=== PATIENT | female | born 1945 | race Hispanic/Latino ===

== ENCOUNTER 2017-07-31 12:07 | Emergency (ER) | payer MEDICARE ==
[2017-07-31 12:39] LABS: BASOPHILS % (AUTO) 0.8 % (0.0-5.0); HEMATOCRIT 43.1 % (36-48); MEAN CORPUSCULAR HEMOGLOBIN 30.4 pg (27.0-33.0); MEAN CORPUSCULAR HGB CONC 33.8 g/dL (32.0-36.0); MEAN CORPUSCULAR VOLUME 89.8 fL (79-99); MONOCYTES % (AUTO) 5.6 % (3.0-13.0); NEUTROPHILS % (AUTO) 43.6 % (40.0-77.0); PLATELET COUNT (AUTO) 294 K/uL (130-400); RED CELL DISTRIBUTION WIDTH 13.6 % (11.0-15.5); WHITE BLOOD COUNT (AUTO) 8.2 K/uL (4.8-10.8)
[2017-07-31 12:49] LABS: CREATININE 0.8 mg/dL (0.5-1.5); POTASSIUM 3.4 mmol/L (3.5-5.1)
[2017-07-31 12:50] LABS: INR 0.92 (0.85-1.15); PROTHROMBIN TIME 9.7 SEC (9.6-11.6)
[2017-07-31 13:06] LABS: BILIRUBIN,TOTAL 0.7 mg/dL (0.2-1.0); CREATINE KINASE MB 0.7 ng/mL (0.5-3.6); TOTAL PROTEIN, SERUM 7.9 g/dL (6.0-8.3)
[2017-07-31] MEDS ORDERED: ONDANSETRON HCL 4 MG/2 ML VIAL ONE (13:06)
[2017-07-31] MEDS ORDERED: POTASSIUM CHLORIDE 10% ELIXIR 20 MEQ/15 ML UDCUP ONE (13:32)
[2017-07-31 14:02] LABS: APPEARANCE,URINE Clear (CLEAR); BILIRUBIN,URINE Negative (NEGATIVE); COLOR,URINE Yellow (YELLOW); GLUCOSE, URINE (UA) Negative (NEGATIVE); KETONES,URINE Negative (NEGATIVE); LEUKOCYTE ESTERASE ,URINE Negative (NEGATIVE); NITRATE,URINE Negative (NEGATIVE); OCCULT BLOOD,URINE Negative (NEGATIVE); PH,URINE 6.5 (5.0-8.0); PROTEIN,URINE Negative (NEGATIVE); UROBILINOGEN,URINE 0.2 mg/dL (0.2-1.0)
== END 2017-07-31 15:32 | disposition home or self-care (01) ==
LOC: EDH 12:07
DX: B34.9 Viral infection, unspecified (principal); M19.90 Unspecified osteoarthritis, unspecified site; M81.0 Age-related osteoporosis without current pathological fracture; Z98.51 Tubal ligation status; Z90.49 Acquired absence of other specified parts of digestive tract; Z98.890 Other specified postprocedural states; Z72.0 Tobacco use
CPT/HCPCS: 36415; 71045; 80053; 81003; 82553; 84484; 85025; 85610; 85730; 87804 ×2; 87880; 93005; 96374; 99285; J2405

== ENCOUNTER 2018-11-30 20:09 | Emergency (ER) | payer MEDICARE ==
[2018-11-30] MEDS ORDERED: IPRATROPIUM/ALBUTEROL SULFATE 3 ML SOLUTION IH ONE (20:48)
[2018-11-30] MEDS ORDERED: KETOROLAC TROMETHAMINE 15MG/ML ONE (20:59)
[2018-11-30] MEDS ORDERED: MAG HYDROX/AL HYDROX/SIMETH ES 30 ML SUSP UDCUP ONE (20:59)
[2018-11-30] MEDS ORDERED: LIDOCAINE HCL 2% VISCOUS 15 ML UDCUP ONE (20:59)
[2018-11-30 21:06] LABS: BASOPHILS % (AUTO) 1.1 % (0.0-5.0); EOSINOPHILS % (AUTO) 1.5 % (0.0-8.0); HEMATOCRIT 44.3 % (36-48); LYMPHOCYTES % (AUTO) 32.3 % (21.0-51.0); MEAN CORPUSCULAR HEMOGLOBIN 30.3 pg (27.0-33.0); MEAN CORPUSCULAR HGB CONC 33.8 g/dL (32.0-36.0); MEAN CORPUSCULAR VOLUME 89.9 fL (79-99); MONOCYTES % (AUTO) 8.4 % (3.0-13.0); NEUTROPHILS % (AUTO) 56.7 % (40.0-77.0); PLATELET COUNT (AUTO) 262 K/uL (130-400); RED BLOOD CELL COUNT(AUTO) 4.93 MIL/uL (4.00-5.50); RED CELL DISTRIBUTION WIDTH 14.3 % (11.0-15.5); WHITE BLOOD COUNT (AUTO) 8.2 K/uL (4.8-10.8)
[2018-11-30 21:24] LABS: INR 0.9 (0.85-1.15); PARTIAL THROMBOPLASTIN TIME 28.9 SEC (26.3-35.5); PROTHROMBIN TIME 9.5 SEC (9.6-11.6)
[2018-11-30 21:32] LABS: CREATININE 0.9 mg/dL (0.5-1.5); POTASSIUM 3.7 mmol/L (3.5-5.1)
[2018-11-30 21:36] LABS: ALBUMIN 3.7 g/dL (3.5-5.0); BILIRUBIN,TOTAL 0.5 mg/dL (0.2-1.0); TOTAL PROTEIN, SERUM 7.4 g/dL (6.0-8.3)
[2018-11-30] MEDS ORDERED: PREDNISONE 20 MG TABLET ONE (21:46)
[2018-11-30] MEDS ORDERED: CYCLOBENZAPRINE HCL 10 MG TABLET ONE (21:46)
[2018-11-30 21:47] LABS: B-TYPE NATRIURETIC PEPTIDE 29 pg/mL (0-100)
[2018-11-30] MEDS ORDERED: AZITHROMYCIN 250 MG TABLET PO ONE (22:03)
== END 2018-11-30 22:14 | disposition home or self-care (01) ==
LOC: EDH 20:09
DX: J20.9 Acute bronchitis, unspecified (principal); R07.89 Other chest pain; M62.838 Other muscle spasm; M19.90 Unspecified osteoarthritis, unspecified site; Z90.49 Acquired absence of other specified parts of digestive tract; Z98.51 Tubal ligation status; Z98.890 Other specified postprocedural states
CPT/HCPCS: 36415; 71046; 80053; 82550; 83605; 83690; 83880; 84484; 85025; 85610; 85730; 93005; 94640; 96374; 99285; J1885

== ENCOUNTER 2019-05-31 07:32 | Day surgery (SDC) | payer MEDICARE ==
[2019-05-30 16:57] VITALS: BP 115/69
[2019-05-31] VITALS (17 sets, daily range): BP systolic 100–153; BP diastolic 51–78
[~2019-05-31] VITALS: Ht 151.1 cm; Wt 73.3 kg
[~2019-05-31 07:32] MED LIST: OMEP-50 PO; TRAM50TA4 PO
[2019-05-31] MEDS ORDERED: LACTATED RINGERS 1000ML 1,000 ML IV ONE (08:11)
[2019-05-31] MEDS: CEFAZOLIN SODIUM 1 GM VIAL IVP ONE ×2 (08:18→09:20)
--- NOTE | 2019-05-31 08:30 | NUR ---
SKIN RIGHT KNEE WIPED WITH JOEL
[2019-05-31] MEDS ORDERED: PROPOFOL 10 MG/ML 20ML VIAL IV ONE (09:04)
[2019-05-31] MEDS ORDERED: ONDANSETRON HCL 4 MG/2 ML VIAL ONE (09:04)
[2019-05-31] MEDS ORDERED: MIDAZOLAM HCL 1 MG/ML 2ML VIAL ONE (09:04)
[2019-05-31] MEDS ORDERED: FENTANYL CITRATE PF 50 MCG/1 ML 2ML VIAL ONE (09:04)
[2019-05-31] MEDS ORDERED: DEXAMETHASONE SOD PHOSPHATE 10MG/ML 1ML VIAL ONE (09:04)
[2019-05-31] MEDS ORDERED: LIDOCAINE PF 2% 5ML ABBOJECT ONE (09:04)
[2019-05-31] MEDS ORDERED: ROCURONIUM 10MG/1ML SYR 10 MG/ML ML ONE (09:19)
[2019-05-31] MEDS ORDERED: NEOSTIGMINE 5MG/5ML SYR IV ONE (10:03)
[2019-05-31] MEDS ORDERED: GLYCOPYRROLATE 1 MG/5 ML SYRINGE ONE (10:03)
[2019-05-31] MEDS ORDERED: CEPH500B PO (10:31)
[2019-05-31] MEDS ORDERED: TRAM50TA4 PO (10:31)
[2019-05-31] MEDS ORDERED: MELO-106 PO (10:31)
[2019-05-31] MEDS ORDERED: MEPERIDINE-PF 25 MG/ML SYG ONE (10:50)
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
== END 2019-05-31 12:20 | disposition home or self-care (01) ==
LOC: DAH 07:32
PROVIDERS: ATTEND Orthopaedic Surgery
DX: M23.321 Other meniscus derangements, posterior horn of medial meniscus, right knee (principal); M94.261 Chondromalacia, right knee; G89.29 Other chronic pain; M19.90 Unspecified osteoarthritis, unspecified site; I10 Essential (primary) hypertension; Z90.49 Acquired absence of other specified parts of digestive tract; Z79.899 Other long term (current) drug therapy; Z99.89 Dependence on other enabling machines and devices
CPT/HCPCS: 29881; A4215; A4221; A4222; A4223; A4606; A4649; A4663; A4930; A5120; A6223; J0690; J1100; J2001; J2175; J2250; J2405; J2704; J2710; J3010; J3490; J7120

== ENCOUNTER → 2020-12-23 | Outpatient (CLI) | payer MEDICARE ==
[~2020-12-23] MED LIST changes: +CEPH500B PO; +MELO-106 PO; -OMEP-50 PO; +OMEP20CA12 PO
== END | disposition home or self-care (01) ==
LOC: OIH 09:39
PROVIDERS: ATTEND Internal Medicine
DX: M17.0 Bilateral primary osteoarthritis of knee (principal); M23.8X2 Other internal derangements of left knee; M23.8X1 Other internal derangements of right knee

== ENCOUNTER → 2023-06-20 | Outpatient (CLI) | payer OTHER, MEDICARE | END | disposition home or self-care (01) | LOC: RAH 07:05 | PROVIDERS: ATTEND Internal Medicine | DX: R10.13 Epigastric pain (principal); R11.0 Nausea; R14.0 Abdominal distension (gaseous) | CPT/HCPCS: 78264; A9541 ==

== ENCOUNTER → 2025-03-26 | Outpatient (CLI) | payer OTHER, MEDICAID ==
--- NOTE | 2025-03-27 09:28 | HMCIMG ---
EXAMINATION: NONCONTRAST MR EXAMINATION OF THE RIGHT KNEE. CLINICAL HISTORY: Internal derangement of the right knee. COMPARISON: None provided. TECHNIQUE: Multiplanar, multisequence MR imaging of the right knee. FINDINGS: In the medial compartment, the degenerative posterior horn and posterior horn body junction medial meniscus horizontal cleavage tear. There is diffuse mild medial femorotibial weight bearing chondral thinning involving anterior 2/3rd of the articular surface. In the lateral compartment, the meniscus is intact. There is no focal chondrosis or subchondral bone marrow edema. In the patellofemoral compartment, there is mild diffuse medial patellar chondral thinning. 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 The posterior cruciate ligament is intact. Iliotibial band, fibular collateral ligament, biceps femoris tendon, conjoined tendon, and popliteus tendon are intact. The medial collateral ligament is intact. The extensor mechanism and patellar retinaculum are intact. There is mild knee joint effusion. There is no bone marrow signal abnormality seen to suggest fracture, avascular necrosis, or osteomyelitis. The musculature surrounding the knee demonstrate normal bulk and signal. IMPRESSION: 1. Degenerative posterior horn and posterior horn body junction medial meniscus horizontal cleavage tear. 2. Mild to moderate chondral thinning in medial femorotibial and patellofemoral compartments. 3. 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 4. Mild knee joint effusion. /[place]
== END | disposition home or self-care (01) ==
LOC: RAH 13:55
PROVIDERS: ATTEND Orthopaedic Surgery
DX: S83.241A Other tear of medial meniscus, current injury, right knee, initial encounter (principal); M17.11 Unilateral primary osteoarthritis, right knee; M25.461 Effusion, right knee; M23.91 Unspecified internal derangement of right knee; X58.XXXA Exposure to other specified factors, initial encounter; Y93.89 Activity, other specified; Y92.89 Other specified places as the place of occurrence of the external cause; Y99.8 Other external cause status
CPT/HCPCS: 73721